=== PATIENT | female | born 1995 | race African-American/Black ===

== ENCOUNTER 2018-01-25 14:41 | Emergency (ER) | payer MEDICAID ==
[~2018-01-25] VITALS: Ht 165.1 cm; Wt 65.8 kg
[2018-01-25 15:47] LABS: CLARITY URINE CLEAR (CLEAR); COLOR URINE YELLOW (YELLOW); KETONES URINE NEGATIVE (NEGATIVE); LEUKOCYTE ESTERASE URINE NEGATIVE (NEGATIVE); NITRITE URINE NEGATIVE (NEGATIVE); OCCULT BLOOD URINE NEGATIVE (NEGATIVE); PH URINE 6.5 (4.5-8.0); PROTEIN URINE NEGATIVE (NEGATIVE); SPECIFIC GRAVITY URINE 1.013 (1.005-1.030); UROBILINOGEN URINE 0.2 E.U./dL (0.2-1.0)
[2018-01-25 16:49] LABS: BASOPHILS % 0.4 % (0.0-2.0); EOSINOPHILS % 0.4 % (0.0-5.0); HEMATOCRIT. 36.2 % (36.0-48.0); HEMOGLOBIN. 12.1 g/dL (12.0-16.0); LYMPHOCYTES % 22.4 % (20.0-50.0); MEAN CORPUSCULAR HEMOGLOBIN 27.8 pg (28.0-32.0); MEAN CORPUSCULAR VOLUME 83.1 fL (81.0-99.0); MEAN PLATELET VOLUME 9.5 fl (7.4-10.4); MONOCYTES % 5.2 % (2.0-8.0); NEUTROPHILS % 71.6 % (40.0-76.0); PLATELET 300 x1000/uL (130-400); RED BLOOD CELL COUNT 4.36 mill/uL (4.2-5.4); RED CELL DISTRIBUTION WIDTH 15.5 % (11.6-14.6)
[2018-01-25 16:54] LABS: CHLORIDE 103 mEq/L (98-107)
[2018-01-25 17:18] LABS: B-HCG QUANTITATIVE 56704 mIU/mL (<3)
[2018-01-25 18:20] VITALS: BP 117/76
== END 2018-01-25 18:36 | disposition home or self-care (01) ==
LOC: ER 14:59
DX: O26.891 Other specified pregnancy related conditions, first trimester (principal); R53.1 Weakness; Z3A.00 Weeks of gestation of pregnancy not specified
CPT/HCPCS: 36415; 76801; 80053; 81003; 81025; 84702; 85025; 86850; 86900; 99285

== ENCOUNTER 2018-07-24 11:39 | Emergency (ER) | payer MEDICAID ==
[~2018-07-24] VITALS: Ht 162.6 cm; Wt 55.0 kg
[2018-07-24 12:26] LABS: BASOPHILS % 0.1 % (0.0-2.0); EOSINOPHILS % 0.6 % (0.0-5.0); HEMOGLOBIN. 11.8 g/dL (12.0-16.0); LYMPHOCYTES % 17.6 % (20.0-50.0); MEAN CORPUSCULAR HEMOGLOBIN 29.7 pg (28.0-32.0); MEAN CORPUSCULAR VOLUME 88.4 fL (81.0-99.0); MEAN PLATELET VOLUME 9.7 fl (7.4-10.4); MONOCYTES % 5.9 % (2.0-8.0); NEUTROPHILS % 75.8 % (40.0-76.0); PLATELET 207 x1000/uL (130-400); RED BLOOD CELL COUNT 3.96 mill/uL (4.2-5.4); RED CELL DISTRIBUTION WIDTH 12.6 % (11.6-14.6)
[2018-07-24 12:34] LABS: CHLORIDE 107 mEq/L (98-107)
[2018-07-24 15:16] VITALS: BP 118/76
[2018-07-24] MEDS ORDERED: PREN1TAB78 MT (16:27)
[2018-07-24] MEDS ORDERED: FERR325T6 MT (16:27)
== END 2018-07-24 15:21 | disposition home or self-care (01) ==
LOC: ER 11:44
DX: R07.89 Other chest pain (principal); F41.9 Anxiety disorder, unspecified; R00.2 Palpitations
CPT/HCPCS: 36415; 71045; 80053; 83880; 84484; 85025; 93005; 99285

== ENCOUNTER 2018-07-24 16:23 | Observation (INO) | payer MEDICAID ==
[~2018-07-24] VITALS: Ht 165.1 cm; Wt 73.0 kg
[2018-07-24] MEDS ORDERED: PREN1TAB78 MT (16:27)
[2018-07-24] MEDS ORDERED: FERR325T6 MT (16:27)
== END 2018-07-24 16:30 | disposition home or self-care (01) ==
LOC: L&D 16:23
PROVIDERS: ADMIT Obstetrics & Gynecology; ATTEND Obstetrics & Gynecology
DX: O99.343 Other mental disorders complicating pregnancy, third trimester (principal); F41.0 Panic disorder [episodic paroxysmal anxiety]; Z3A.32 32 weeks gestation of pregnancy
CPT/HCPCS: 99281; G0378

== ENCOUNTER 2019-01-07 16:18 | Emergency (ER) | payer MEDICAID ==
[~2019-01-07] VITALS: Ht 162.6 cm; Wt 70.2 kg
[~2019-01-07 16:18] MED LIST: ACETAMINOPHEN 325MG TABLET ONE; FERR325T6 MT; PREN1TAB78 MT
[2019-01-07] MEDS ORDERED: ACETAMINOPHEN 325MG TABLET PO ONE (16:30)
[2019-01-07 17:02] LABS: CLARITY URINE TURBID (CLEAR); COLOR URINE YELLOW (YELLOW); KETONES URINE NEGATIVE (NEGATIVE); LEUKOCYTE ESTERASE URINE 3+ (NEGATIVE); NITRITE URINE NEGATIVE (NEGATIVE); OCCULT BLOOD URINE 2+ (NEGATIVE); PH URINE 5.5 (4.5-8.0); PROTEIN URINE 1+ (NEGATIVE); SPECIFIC GRAVITY URINE 1.012 (1.005-1.030); UROBILINOGEN URINE 0.2 E.U./dL (0.2-1.0)
[2019-01-08] MEDS ORDERED: SODIUM CHLORIDE 0.9% 1,000 ML IV ONE ×2 (03:23→06:15)
[2019-01-08] MEDS ORDERED: KETOROLAC 30MG/ML VIAL IV STA (03:23)
[2019-01-08] MEDS ORDERED: CEFTRIAXONE 1 G PREMIX 50 ML IV ONE (03:30)
[2019-01-08 05:30] LABS: BASOPHILS % 0.2 % (0.0-2.0); HEMATOCRIT. 35.3 % (36.0-48.0); HEMOGLOBIN. 11.8 g/dL (12.0-16.0); LYMPHOCYTES % 8.5 % (20.0-50.0); MEAN CORPUSCULAR HEMOGLOBIN 28.5 pg (28.0-32.0); MEAN CORPUSCULAR VOLUME 85.3 fL (81.0-99.0); MEAN PLATELET VOLUME 8.7 fl (7.4-10.4); MONOCYTES % 7.8 % (2.0-8.0); NEUTROPHILS % 83.5 % (40.0-76.0); PLATELET 222 x1000/uL (130-400); RED BLOOD CELL COUNT 4.14 mill/uL (4.2-5.4); RED CELL DISTRIBUTION WIDTH 11.6 % (11.6-14.6)
[2019-01-08 05:37] LABS: CHLORIDE 107 mEq/L (98-107)
[2019-01-08] MEDS ORDERED: AZITHROMYCIN 500 MG TABLET PO ONE (06:15)
[2019-01-08] MEDS ORDERED: IBUPROFEN 600MG TABLET PO ONE (06:15)
[2019-01-08] MEDS ORDERED: POTASSIUM CHLORIDE 20MEQ TABLET SR PO ONE (06:30)
[2019-01-08 07:00] VITALS: BP 120/66
== END 2019-01-08 07:25 | disposition home or self-care (01) ==
LOC: ER 16:18
DX: N10 Acute pyelonephritis (principal); E87.6 Hypokalemia; F17.200 Nicotine dependence, unspecified, uncomplicated; F41.9 Anxiety disorder, unspecified
CPT/HCPCS: 36415; 80053; 81003; 81025; 85025; 87077; 87086; 87186; 96365; 96375; 99284; J0696; J1885; J7030; Z7610

== ENCOUNTER 2020-05-27 17:56 | Emergency (ER) | payer MEDICAID ==
[~2020-05-27] VITALS: Ht 165.1 cm; Wt 77.0 kg
[~2020-05-27 17:56] MED LIST changes: -ACETAMINOPHEN 325MG TABLET ONE
[2020-05-27 18:01] VITALS: BP 142/78
== END 2020-05-27 18:56 | disposition left against medical advice (07) ==
LOC: ER 17:56
DX: Z53.21 Procedure and treatment not carried out due to patient leaving prior to being seen by health care provider (principal); F41.9 Anxiety disorder, unspecified

== ENCOUNTER 2025-01-14 01:15 | Emergency (ER) | payer MEDICAID ==
[~2025-01-14] VITALS: Ht 170.2 cm; Wt 75.0 kg
[2025-01-14 01:19] VITALS: BP 132/80; PULSE 118; RESP 16; TEMP 37; O2SAT 98
== END 2025-01-14 01:27 | disposition left against medical advice (07) ==
LOC: ER 01:15
DX: R45.1 Restlessness and agitation (principal); F41.9 Anxiety disorder, unspecified
CPT/HCPCS: 99283